=== PATIENT | female | born 1985 | race Caucasian/White ===

== ENCOUNTER 2018-08-08 03:28 | Inpatient (IN) | payer OTHER ==
[2018-08-08] MEDS ORDERED: ELECTROLYTE-148 SOLN 1,000 ML IV ONE (03:30)
[2018-08-08] MEDS ORDERED: OXYTOCIN 30 UNITS in 0.9% NS 30 UNIT/500 ML INFUS.BAG IVPB SCH (03:30)
[2018-08-08] MEDS ORDERED: VANCOMYCIN 2,000 MG in DEXTROSE 5%-WATER - 500 ML IVPB ONE (04:00)
[2018-08-08] MEDS ORDERED: CITRIC ACID/SODIUM CITRATE 30 ML UNIT-DOSE CUP PO ONE (04:00)
[2018-08-08] MEDS ORDERED: FENTANYL/BUPIVACAINE/NS/PF - PCEA - 50 ML DISP.SYRIN EP ONE (04:02)
[2018-08-08] MEDS: ELECTROLYTE-148 SOLN 1,000 ML IV SCH ×2 (04:50→07:45)
[2018-08-08] MEDS ORDERED: NALOXONE HCL 0.4 MG/ML VIAL IVPUSH PRN (04:58)
[2018-08-08] MEDS ORDERED: FENTANYL/BUPIVACAINE/NS/PF - PCEA - 50 ML DISP.SYRIN EP SCH (05:00)
[2018-08-08 05:54] VITALS: BMI 29.6
[2018-08-08] MEDS ORDERED: OXYTOCIN 20 UNITS in 0.9% NS 20 UNIT/1,000 ML INFUS.BAG IV ONE (07:08)
[2018-08-08] MEDS ORDERED: OXYTOCIN 30 UNITS in 0.9% NS 30 UNIT/500 ML INFUS.BAG IVPB ONE (07:41)
--- NOTE | 2018-08-08 07:54 | HP ---
Past Medical History - Primary Care Physician PCP:: Christianne Agee - Admission Chief Complaint: 32yo P0 with PROM 3am, clear fluid, + ctx, no VB, +FM. seen on L&D 08/07/18 10pm, offered to stay and recieve GBS prophylaxys, she declined. History of Present Illness: Uncomplicated PNC Labs wnl History Source: Patient, Medical Record Limitations to Obtaining History: No Limitations - Past Medical History Pulmonary: Yes: Asthma (exercise induced) Reproductive: Yes: Other (2010-abn PAP, neg colpo, no LEEP) ...: 2 ...Para: 0 ...Term: 0 ...: 0 ...Spon : 0 ...Induced : 1 ...Multiple Gestation: 0 ...LMP: 10/24/17 ... Weeks Gestation by Dates: 41.1 ...EDC by Dates: 07/31/18 ...EDC by Sono: 08/10/18 - Past Surgical History Past Surgical History: Yes: Tonsillectomy Hx Myomectomy: No Hx Transabdominal Cerclage: No Additional Surgical History: Right foot tendon repair, tendon graft - 2016 - Smoking History Smoking history: Former smoker Have you smoked in the past 12 months: No - Alcohol/Substance Use Hx Alcohol Use: No History of Substance Use: reports: None Home Medications - Allergies Allergies/Adverse Reactions: Allergies Allergy/AdvReac Type Severity Reaction Status Date / Time Penicillins Allergy Intermediate rash Verified 08/08/18 06:45 - Home Medications Home Medications: Ambulatory Orders Albuterol Sulfate 0.5% [Ventolin 0.5% Nebulizing Soln. -] 2.5 mg IH QID PRN # 120 02/16/15 Vitamins (Sjr) - 1 tab PO DAILY 08/08/18 Ibuprofen [Motrin -] 600 mg PO TID #21 tablet 08/10/18 Review of Systems - Review of Systems Constitutional: reports: No Symptoms Eyes: reports: No Symptoms HENT: reports: No Symptoms Neck: reports: No Symptoms Cardiovascular: reports: No Symptoms Respiratory: reports: No Symptoms Gastrointestinal: reports: No Symptoms Genitourinary: reports: No Symptoms Breasts: reports: No Symptoms Reported Musculoskeletal: reports: No Symptoms Integumentary: reports: No Symptoms Neurological: reports: No Symptoms Endocrine: reports: No Symptoms Hematology/Lymphatic: reports: No Symptoms Psychiatric: reports: No Symptoms Physical Exam - Maternity Vital Signs: Vital Signs Temperature 98.2 F 08/08/18 07:00 Pulse Rate 80 08/08/18 07:00 Respiratory Rate 19 08/08/18 07:00 Blood Pressure 94/47 08/08/18 07:00 O2 Sat by Pulse Oximetry (%) 100 08/08/18 07:00 Constitutional: Yes: Well Nourished, No Distress, Calm Eyes: Yes: WNL, Conjunctiva Clear, EOM Intact HENT: Yes: WNL, Atraumatic, Normocephalic Neck: Yes: WNL, Supple, Trachea Midline Cardiovascular: Yes: WNL, Regular Rate and Rhythm Lungs: Clear to auscultation Breast(s): Yes: WNL - Abdominal Exam/OB Fundal Height: 39 (EFW 6lb) Number of Fetuses: Single Presentation: Vertex Contractions: Yes Regularity: Regular Intensity: Mild/Mod Monitor Mode: External Heart Rate (range): 130s Heart Rate Location: Midline Category: I Accelerations: Uniform Decelerations: None - Vaginal Exam/OB Vaginal Bleediing: No Dilatation (cm): 4 Effacement (%): 90 Amniotic Membrane Status: Ruptured Nitrazine Test: Positive Amniotic Fluid: Yes: Clear Presentation: Vertex/Position Station: -3 (Adequate pelvis) - Physical Exam Musculoskeletal: Yes: WNL Extremities: Yes: WNL Edema: No Integumentary: Yes: WNL ...Motor Strength: WNL Psychiatric: Yes: WNL, Alert, Oriented Assessment/Plan 32yo P0 @ 39.5 wks with PROM in early labor status - Category 1, reassuring Maternal status VSS, afebrile Admit to L&D GBS pos for Vancomycin 2gr IV now Desires Epidural - request anesthesia presence IVF, NPO, follow labs anticipate
[2018-08-08] MEDS ORDERED: LIDOCAINE HCL 1% PRESERVATIVE FREE - 30ML VIAL ONE (08:56)
[2018-08-08] MEDS ORDERED: BENZOCAINE 28 GM HEMORRHOIDAL OINTMENT TP PRN (09:14)
[2018-08-08] MEDS ORDERED: METHYLERGONOVINE MALEATE 0.2 MG/1 ML AMP IM PRN (09:14)
[2018-08-08] MEDS ORDERED: BENZOCAINE 20% 57 GM BOTTLE TP PRN (09:14)
[2018-08-08] MEDS ORDERED: BISACODYL 10 MG SUPP.RECT RC PRN (09:14)
[2018-08-08] MEDS ORDERED: WITCH HAZEL 50% (TUCKS) 40 PAD/JAR PAD TP PRN (09:14)
[2018-08-08] MEDS ORDERED: D5W-LR W/ 20 UNITS OXYTOCIN 20 UNIT/1,000 ML INFUS.BAG IV SCH (09:15)
[2018-08-08 09:46] LABS: VENOUS PC02 42.1 mmHg (38-52); VENOUS PH 7.31 (7.32-7.42); VENOUS PO2 36.8 mmHg (28-48)
[2018-08-08] MEDS: FERROUS SO4 325 MG TABLET (FP) PO SCH ×2 (10:19→22:15)
[2018-08-08] MEDS: PRENATAL VITAMINS W/ FOLIC ACID TABLET (FP) PO SCH (10:19)
[2018-08-08] MEDS: IBUPROFEN 600 MG TABLET (FP) PO PRN ×2 (17:06→22:12)
[2018-08-08] MEDS: ACETAMINOPHEN 325 MG TABLET (FP) PO PRN ×2 (17:06→22:12)
[2018-08-09] MEDS: IBUPROFEN 600 MG TABLET (FP) PO PRN ×4 (04:38→20:25)
[2018-08-09] MEDS: ACETAMINOPHEN 325 MG TABLET (FP) PO PRN ×4 (04:39→20:25)
[2018-08-09 07:24] LABS: BASO % 0.4 % (0-2.0); HEMATOCRIT 36.6 % (32.4-45.2); HEMOGLOBIN 12.2 GM/dL (10.7-15.3); LYMPH % 19.1 % (8-40); MCH 30.4 pg (25.7-33.7); MCHC 33.4 g/dl (32.0-36.0); MEAN CELL VOLUME 91.2 fl (80-96); MEAN PLT VOLUME 10.3 fl (7.5-11.1); MONO % 4.8 % (3.8-10.2); NEUT % 74.7 % (42.8-82.8); PLATELET COUNT 120 K/MM3 (134-434); RBC 4.01 M/mm3 (3.60-5.2); RDW 13.4 % (11.6-15.6); WHITE BLOOD COUNT 11.9 K/mm3 (4.0-10.0)
[2018-08-09] MEDS: FERROUS SO4 325 MG TABLET (FP) PO SCH ×2 (09:27→21:07)
[2018-08-09] MEDS: PRENATAL VITAMINS W/ FOLIC ACID TABLET (FP) PO SCH (09:27)
--- NOTE | 2018-08-09 21:17 | PN ---
Post Progress Note - Subjective Subjective: no complains Post Day: 1 Type of Delivery: Vital Signs: Vital Signs Temperature 97.9 F 08/09/18 10:00 Pulse Rate 86 08/09/18 10:00 Respiratory Rate 20 08/09/18 10:00 Blood Pressure 100/56 08/09/18 10:00 O2 Sat by Pulse Oximetry (%) 100 08/08/18 10:00 Breast Exam: Yes: Soft Uterus: Yes: Fundus Firm Incision: Yes: Dressing dry and intact Abdomen/GI: Yes: Abdomen soft Lochia: Yes: Rubra Lochia, amount: Small Extremities: Yes: Calves non-tender Perineum: Yes: Intact Activity: Ambulating - Labs Labs: CBC WBC 11.9 K/mm3 (4.0-10.0) H 08/09/18 06:55 RBC 4.01 M/mm3 (3.60-5.2) 08/09/18 06:55 Hgb 12.2 GM/dL (10.7-15.3) 08/09/18 06:55 Hct 36.6 % (32.4-45.2) 08/09/18 06:55 MCV 91.2 fl (80-96) 08/09/18 06:55 MCH 30.4 pg (25.7-33.7) 08/09/18 06:55 MCHC 33.4 g/dl (32.0-36.0) 08/09/18 06:55 RDW 13.4 % (11.6-15.6) 08/09/18 06:55 Plt Count 120 K/MM3 (134-434) L 08/09/18 06:55 MPV 10.3 fl (7.5-11.1) 08/09/18 06:55 Absolute Neuts (auto) 8.9 K/mm3 (1.5-8.0) H 08/09/18 06:55 Neutrophils % 74.7 % (42.8-82.8) 08/09/18 06:55 Lymphocytes % 19.1 % (8-40) D 08/09/18 06:55 Monocytes % 4.8 % (3.8-10.2) 08/09/18 06:55 Eosinophils % 1.0 % (0-4.5) D 08/09/18 06:55 Basophils % 0.4 % (0-2.0) 08/09/18 06:55 Nucleated RBC % 0 % (0-0) 08/09/18 06:55 Assessment/Plan 32yo P1 now PPD#1 s/p Vacuum assisted vaginal delivery VSS, afibrile Doing well h/h stable cont. routine care.
--- NOTE | 2018-08-09 21:26 | PN ---
Delivery - Delivery Vaginal Delivery: Vacuum Assist Type of Anesthesia: Local, Epidural Episiotomy/Laceration: Vaginal Extension/lac, 1st degree EBL (cc): 200 Delivery, Single - Stages of Labor Date 1st Stage Initiatied: 08/07/18 Time 1st Stage Initiated: 20:00 Date 2nd Stage Initiated: 08/08/18 Time 2nd Stage Initiated: 08:20 Date of Delivery: 08/08/18 Time of Delivery: 08:48 Time Placenta Delivered: 08:50 Placenta: Yes: Spontaneous - Condition of Supervisor Heat Treating/Continuing Education Specialist Present: Yes Name: Kaylah Fan Infant Gender: Female Weight: 5 lb 14 oz Position: Left, OA Total Hours ROM (Hrs/Mins): 5hrs/50mins - 1 Minute Total Score: 8 5 Minutes Total Score: 9 - [place] Feeding Plan Initial Plan: Exclusive throughout hospitalization Benefits of Exclusively reinforced: Yes Remarks - Remarks Remarks: at vaginal exam FD/+2 station, Category 3 FHR noted, prolonged deceleration at 80s-90s Kiwi vacuum applied to the occiput, direct occiput anterior station noted, one pop of occurred, head was delivered with second application, rest of the 's body was delivered without difficulty, handed to awaiting pediatricians, terminal meconium noted
[2018-08-09] MEDS ORDERED: SENNOSIDES/DOCUSATE COMBO (SENNA PLUS) TABLET (UD) PO PRN (22:00)
[2018-08-10] MEDS: IBUPROFEN 600 MG TABLET (FP) PO PRN (02:51)
[2018-08-10] MEDS: ACETAMINOPHEN 325 MG TABLET (FP) PO PRN (02:52)
--- NOTE | 2018-08-10 07:10 | DS ---
Physical Exam-ROLL HANDLER Vital Signs: Vital Signs Temperature 98.7 F 08/09/18 21:22 Pulse Rate 77 08/09/18 21:22 Respiratory Rate 18 08/09/18 21:22 Blood Pressure 118/74 08/09/18 21:22 O2 Sat by Pulse Oximetry (%) 100 08/08/18 10:00 Constitutional: Yes: Well Nourished, No Distress, Calm Eyes: Yes: WNL, Conjunctiva Clear, EOM Intact HENT: Yes: WNL, Atraumatic, Normocephalic Neck: Yes: WNL, Supple, Trachea Midline Cardiovascular: Yes: WNL, Regular Rate and Rhythm Respiratory: Yes: WNL, Regular, CTA Bilaterally Gastrointestinal: Yes: WNL, Normal Bowel Sounds, Soft Renal/: Yes: WNL Pelvis: Yes: WNL External Genitalia: Yes: Normal Vaginal Exam: Yes: Normal Cervix: Yes: Normal Uterus: Yes: Normal ....Post : Yes: Uterus firm, Uterus non-tender Breast(s): Yes: WNL Musculoskeletal: Yes: WNL Extremities: Yes: WNL Edema: No Integumentary: Yes: WNL Wound/Incision: Yes: Clean/Dry, Well Approximated Neurological: Yes: WNL, Alert, Oriented ...Motor Strength: WNL Psychiatric: Yes: WNL, Alert, Oriented Labs: CBC, BMP 08/09/18 06:55 Delivery - Delivery Vaginal Delivery: Vacuum Assist Type of Anesthesia: Local, Epidural Episiotomy/Laceration: Vaginal Extension/lac, 1st degree EBL (cc): 200 Delivery, Single - Stages of Labor Date 1st Stage Initiatied: 08/07/18 Time 1st Stage Initiated: 20:00 Date 2nd Stage Initiated: 08/08/18 Time 2nd Stage Initiated: 08:20 Date of Delivery: 08/08/18 Time of Delivery: 08:48 Time Placenta Delivered: 08:50 Placenta: Yes: Spontaneous - Condition of Infant Team Leader Surgery/Lightning Rod Installer Present: Yes Name: Kaylah Fan Infant Gender: Female Weight: 5 lb 14 oz Position: Left, OA Total Hours ROM (Hrs/Mins): 5hrs/50mins - 1 Minute Total Score: 8 5 Minutes Total Score: 9 - Feeding Plan Initial Plan: Exclusive throughout hospitalization Benefits of Exclusively reinforced: Yes Remarks - Remarks Remarks: at vaginal exam FD/+2 station, Category 3 FHR noted, prolonged deceleration at 80s-90s Kiwi vacuum applied to the occiput, direct occiput anterior station noted, one pop of occurred, head was delivered with second application, rest of the infant's body was delivered without difficulty, handed to awaiting pediatricians, terminal meconium noted Discharge Summary Reason For Visit: LABOR Procedures: Principal: Vacuum assisted vaginal delivery Condition: Good - Instructions Diet, Activity, Other Instructions: Physical activity Resume your normal everyday activity as tolerated no heavy lifting or exercise until seen by your surgeon. You may walk unlimited manohar of and climb stairs. You may resume driving the car when you feel safe and comfortable behind the wheel. No sexual activity as instructed. Wound care If you have a bandage, leave it on, and keep dry for 48-72 hours. After that time discard the outer bandage. If they are tapes on the skin under the out of bandage leave them in place. They will peel off in the next 7 to 10 days. Do Not Peel them off. You may shower the day after surgery. If there are tapes present on the skin, you may shower over them. Diet There are no dietary restrictions. Eat healthy, high-fiber foods. Drink 6 to 8 glasses of liquid each day. This will assist in keeping your bowels are regular. Pain management You may take Tylenol or acetaminophen or Ibuprofen (for example, Motrin, Advil etc.) from my pain prescription medication is ordered should be taken as prescribed for moderate to severe pain. Call MD for any of the following: Severe pain not relieved by medication Fever of 101 or higher Excessive bleeding or drainage on dressing Inability to urinate Disposition: HOME - Home Medications Comprehensive Discharge Medication List: Ambulatory Orders Albuterol Sulfate 0.5% [Ventolin 0.5% Nebulizing Soln. -] 2.5 mg IH QID PRN # 120 02/16/15 Vitamins (Sjr) - 1 tab PO DAILY 08/08/18
[2018-08-10] MEDS: PRENATAL VITAMINS W/ FOLIC ACID TABLET (FP) PO SCH (09:39)
[2018-08-10] MEDS: FERROUS SO4 325 MG TABLET (FP) PO SCH (09:39)
[2018-08-10 10:15] VITALS: BP 114/66; PULSE 76; TEMP 97.7
== END 2018-08-10 10:58 | disposition home or self-care (01) | DRG 775 ==
LOC: JLDR 03:28 → J3W 10:30
PROVIDERS: ADMIT Obstetrics & Gynecology; ATTEND Obstetrics & Gynecology
PROC: 10D07Z6 Extraction of Products of Conception, Vacuum, Via Natural or Artificial Opening (ICD-10-PCS; principal; 2018-08-08)
PROC: 0HQ9XZZ Repair Perineum Skin, External Approach (ICD-10-PCS; 2018-08-08)
DX: O76 Abnormality in fetal heart rate and rhythm complicating labor and delivery (principal); O70.0 First degree perineal laceration during delivery; O66.5 Attempted application of vacuum extractor and forceps; Z3A.39 39 weeks gestation of pregnancy; Z37.0 Single live birth
CPT/HCPCS: 36415; 59409; 82803; 85025

== ENCOUNTER 2022-04-24 08:30 | Inpatient (IN) | payer OTHER ==
[2022-04-24] MEDS ORDERED: OXYTOCIN 30 UNITS in 0.9% NS 30 UNIT/500 ML INFUS.BAG IVPB SCH (09:30)
[2022-04-24] MEDS: ELECTROLYTE-148 SOLN 1,000 ML IV SCH ×2 (09:30→17:00)
[2022-04-24 10:09] VITALS: BMI 33.9
[2022-04-24] MEDS ORDERED: OXYTOCIN 30 UNITS in 0.9% NS 30 UNIT/500 ML INFUS.BAG IVPB ONE (10:21)
[2022-04-25] MEDS: ELECTROLYTE-148 SOLN 1,000 ML IV SCH ×2 (00:30→06:50)
[2022-04-25] MEDS ORDERED: ACETAMINOPHEN 325 MG TABLET (FP) ONE (08:24)
[2022-04-25] MEDS ORDERED: ACETAMINOPHEN 325 MG TABLET (FP) PO ONE (08:45)
[2022-04-25] MEDS: VANCOMYCIN PREMIX 1.75 GM 1,750 MG/350 ML PIGGYBACK IVPB SCH (10:25)
[2022-04-25] MEDS ORDERED: FENTANYL/BUPIVACAINE/NS/PF - PCEA - 50 ML DISP.SYRIN EP ONE (13:15)
[2022-04-25] MEDS ORDERED: BUPIVACAINE HCL/PF 0.25% (2.5MG/ML) 10 ML VIAL ONE (13:38)
[2022-04-25] MEDS ORDERED: NALOXONE HCL 0.4 MG/ML VIAL IVPUSH PRN (14:28)
[2022-04-25] MEDS ORDERED: FENTANYL/BUPIVACAINE/NS/PF - PCEA - 50 ML DISP.SYRIN EP SCH (14:30)
[2022-04-25] MEDS ORDERED: LIDOCAINE HCL/EPINEPHRINE/PF 20 ML VIAL ONE (15:37)
[2022-04-25] MEDS ORDERED: CITRIC ACID/SODIUM CITRATE 30 ML UNIT-DOSE CUP PO ONE (16:45)
[2022-04-25] MEDS ORDERED: ACETAMINOPHEN 325 MG TABLET (FP) PO PRN (18:37)
[2022-04-25] MEDS ORDERED: METHYLERGONOVINE MALEATE 0.2 MG/1 ML AMP IM PRN (18:37)
[2022-04-25] MEDS ORDERED: OXYTOCIN 20 UNITS in 0.9% NS 20 UNIT/1,000 ML INFUS.BAG IV ONE (18:40)
[2022-04-25] MEDS: OXYTOCIN 20 UNITS in 0.9% NS 20 UNIT/1,000 ML INFUS.BAG IV SCH (19:15)
[2022-04-25 19:41] LABS: CORD HCO3 21.5 mmHg (20-29); CORD PCO2 44.5 mmHg (30-78); CORD pH 7.302 (7.14-7.44)
[2022-04-25 19:44] LABS: CORD HCO3 23.6 mmHg (20-29); CORD PCO2 48.8 mmHg (30-78); CORD pH 7.302 (7.14-7.44)
[2022-04-26] MEDS: CLINDAMYCIN 600MG PREMIX IVPB 600 MG/50 ML BAG IVPB SCH ×3 (01:52→18:30)
[2022-04-26] MEDS: SIMETHICONE 80 MG TAB.CHEW (FP) PO PRN ×3 (03:18→20:17)
[2022-04-26] MEDS: OXYTOCIN 20 UNITS in 0.9% NS 20 UNIT/1,000 ML INFUS.BAG IV SCH (03:19)
[2022-04-26] MEDS: ACETAMINOPHEN 1000 MG/100 ML BAG IVPB PRN ×2 (03:19→11:51)
[2022-04-26] MEDS ORDERED: oxyCODONE HCL 5 MG TABLET PO PRN (06:38)
[2022-04-26] MEDS: VANCOMYCIN PREMIX 1.75 GM 1,750 MG/350 ML PIGGYBACK IVPB SCH (07:18)
[2022-04-26 08:22] LABS: BASO % 0.3 % (0-2.0); EOS % 0.4 % (0-4.5); HEMATOCRIT 32.3 % (32.4-45.2); HEMOGLOBIN 11.2 GM/dL (10.7-15.3); LYMPH % 14.2 % (8-40); MCH 30.8 pg (25.7-33.7); MCHC 34.5 g/dl (32.0-36.0); MEAN CELL VOLUME 89.2 fl (80-96); MEAN PLT VOLUME 10.6 fl (7.5-11.1); MONO % 6.4 % (3.8-10.2); NEUT % 78.7 % (42.8-82.8); PLATELET COUNT 116 10^3/uL (134-434); RBC 3.62 M/mm3 (3.60-5.2); RDW 13.4 % (11.6-15.6); WHITE BLOOD COUNT 9.8 K/mm3 (4.0-10.0)
[2022-04-26] MEDS: ENOXAPARIN NA (PORCINE) 40 MG/0.4 ML DISP.SYRIN SQ SCH (12:33)
[2022-04-26] MEDS: IBUPROFEN 600 MG TABLET (FP) PO PRN (16:20)
[2022-04-26] MEDS ORDERED: BISACODYL 10 MG SUPP.RECT RC PRN (18:38)
[2022-04-26] MEDS: oxyCODONE HCL 5 MG TABLET PO PRN (20:19)
[2022-04-27] MEDS: oxyCODONE HCL 5 MG TABLET PO PRN (05:16)
[2022-04-27] MEDS: SIMETHICONE 80 MG TAB.CHEW (FP) PO PRN ×4 (05:17→23:09)
[2022-04-27] MEDS: IBUPROFEN 600 MG TABLET (FP) PO PRN ×4 (08:50→23:09)
[2022-04-27] MEDS ORDERED: HYDROCORTISONE 2.5% TOPICAL CREAM 30 GM TUBE TP SCH (11:00)
[2022-04-27] MEDS: ENOXAPARIN NA (PORCINE) 40 MG/0.4 ML DISP.SYRIN SQ SCH (11:25)
[2022-04-28] MEDS: IBUPROFEN 600 MG TABLET (FP) PO PRN (05:55)
[2022-04-28] MEDS: SIMETHICONE 80 MG TAB.CHEW (FP) PO PRN (05:55)
[2022-04-28 08:28] LABS: BASO % 0.5 % (0-2.0); EOS % 3.4 % (0-4.5); HEMATOCRIT 32.1 % (32.4-45.2); LYMPH % 19.4 % (8-40); MCH 30.6 pg (25.7-33.7); MCHC 34.2 g/dl (32.0-36.0); MEAN CELL VOLUME 89.3 fl (80-96); MEAN PLT VOLUME 10.2 fl (7.5-11.1); MONO % 6.6 % (3.8-10.2); NEUT % 70.1 % (42.8-82.8); PLATELET COUNT 139 10^3/uL (134-434); RDW 13.3 % (11.6-15.6); WHITE BLOOD COUNT 6.5 K/mm3 (4.0-10.0)
[2022-04-28 09:14] VITALS: BP 125/74; PULSE 82; TEMP 97.6
[2022-04-28] MEDS: ENOXAPARIN NA (PORCINE) 40 MG/0.4 ML DISP.SYRIN SQ SCH (10:40)
== END 2022-04-28 12:00 | disposition home or self-care (01) | DRG 788 ==
LOC: JLDR 08:30 → J3W 04-25 20:10
PROVIDERS: ADMIT Obstetrics & Gynecology; ATTEND Obstetrics & Gynecology
PROC: 10D00Z1 Extraction of Products of Conception, Low, Open Approach (ICD-10-PCS; principal; 2022-04-25)
DX: O48.0 Post-term pregnancy (principal); Z3A.40 40 weeks gestation of pregnancy; O61.0 Failed medical induction of labor; O33.9 Maternal care for disproportion, unspecified; O62.0 Primary inadequate contractions; O62.1 Secondary uterine inertia; O99.824 Streptococcus B carrier state complicating childbirth; Z37.0 Single live birth
CPT/HCPCS: 36415; 36600; 82803; 85025; 88307-TC; J3370